=== PATIENT | female | born 1960 | race Caucasian/White ===

== ENCOUNTER → 2018-02-17 | Outpatient (CLI) | payer OTHER ==
[2018-02-17 07:31] LABS: BASOPHIL % 0.5 % (0-2); PLATELET COUNT 258 x10^3mcL (130-400); RED CELL DISTRIBUTION WIDTH 13.7 % (11.5-14.5)
[2018-02-17 07:40] LABS: ALBUMIN 4.1 g/dL (3.4-5.0); ALKALINE PHOSPHATASE 77 U/L (46-116); ALT/SGPT 14 U/L (14-59); AST/SGOT 24 U/L (15-37); BILIRUBIN DIRECT 0.11 mg/dL (0.0-0.2); CALCIUM 9.4 mg/dL (8.5-10.1); CARBON DIOXIDE 27.6 mmol/L (21-32); CHLORIDE SERUM 103 mmol/L (98-107); CHOLESTEROL 205 mg/dL (<200); CHOLESTEROL/HDL RATIO 2.8; CREATININE SERUM 0.8 mg/dL (0.6-1.0); GFR1 > 60 mL/min; GLUCOSE SERUM 119 mg/dL (74-106); HDL CHOLESTEROL 73 mg/dL (40-60); POTASSIUM SERUM 4.6 mmol/L (3.5-5.1); SODIUM SERUM 139 mmol/L (136-145); TOTAL PROTEIN, SERUM 7.9 g/dL (6.4-8.2); TRIGLYCERIDES 92 mg/dL (<150); URIC ACID 4.7 mg/dL (2.6-6.0)
[2018-02-17 12:08] LABS: ERYTHROCYTE SED RATE 11 mm/hr (0-30)
[2018-02-18 09:19] LABS: RAPID PLASMA REAGIN Reactive (Non Reactive); RHEUMATOID ARTHRITIS FACTOR 11.9 IU/mL (0.0-13.9)
== END | disposition home or self-care (01) ==
LOC: LB 06:21
PROVIDERS: Internal Medicine
DX: Z00.00 Encounter for general adult medical examination without abnormal findings (principal)
CPT/HCPCS: 86431

== ENCOUNTER → 2020-10-25 | Outpatient (CLI) | payer OTHER ==
[2020-10-25 12:39] LABS: BASOPHIL % 0.6 % (0.2-1.3); PLATELET COUNT 258 x10^3mcL (179-408)
[2020-10-25 13:02] LABS: ALBUMIN 4.5 g/dL (3.4-5.0); ALKALINE PHOSPHATASE 78 U/L (46-116); ALT/SGPT 22 U/L (14-59); AST/SGOT 20 U/L (15-37); BILIRUBIN DIRECT 0.13 mg/dL (0.0-0.2); BILIRUBIN TOTAL 0.4 mg/dL (0.20-1.00); CALCIUM 9.1 mg/dL (8.5-10.1); CARBON DIOXIDE 24.1 mmol/L (21-32); CHLORIDE SERUM 103 mmol/L (98-107); CREATININE SERUM 0.9 mg/dL (0.6-1.0); GFR1 > 60 mL/min; GLUCOSE SERUM 112 mg/dL (74-106); POTASSIUM SERUM 3.9 mmol/L (3.5-5.1); SODIUM SERUM 140 mmol/L (136-145); TOTAL PROTEIN, SERUM 7.7 g/dL (6.4-8.2); TRIGLYCERIDES 97 mg/dL (<150)
[2020-10-25 13:04] LABS: CHOLESTEROL 207 mg/dL (<200); CHOLESTEROL/HDL RATIO 2.8; HDL CHOLESTEROL 74 mg/dL (40-60)
[2020-10-25 13:18] LABS: RED CELL DISTRIBUTION WIDTH 14.6 % (12.3-17.7)
[2020-10-26 06:07] LABS: RAPID PLASMA REAGIN Reactive (Non Reactive)
== END ==
LOC: LB 12:03
PROVIDERS: ATTEND Internal Medicine
DX: Z00.00 Encounter for general adult medical examination without abnormal findings (principal); M25.512 Pain in left shoulder; M54.5 Low back pain